=== PATIENT | male | born 1945 | race Caucasian/White ===

== ENCOUNTER 2016-07-14 09:22 | Day surgery (SDC) | payer MEDICARE, BC ==
[2016-07-14] MEDS ORDERED: Lactated Ringer's 500 ML IV ONE ×2 (10:03→11:38)
[2016-07-14] MEDS ORDERED: Propofol 10 mg/ml Inj (20 ML) ONE (11:20)
[2016-07-14 11:45] VITALS: TEMP 97
[2016-07-14 11:58] VITALS: BP 125/78; PULSE 76; RESP 15; O2SAT 97
== END 2016-07-14 23:00 | disposition home or self-care (01) ==
LOC: H.ENDO 09:22
PROVIDERS: ATTEND Internal Medicine Gastroenterology
DX: D12.5 Benign neoplasm of sigmoid colon (principal); K57.30 Diverticulosis of large intestine without perforation or abscess without bleeding; K64.4 Residual hemorrhoidal skin tags; K64.8 Other hemorrhoids
CPT/HCPCS: 45380; 88305; J2001; J2704; J7120

== ENCOUNTER 2017-04-02 08:31 | Emergency (ER) | payer MEDICARE, BC ==
[2017-04-02 08:45] VITALS: BP 156/81; PULSE 107; BMI 32.8
[2017-04-02 08:47] VITALS: RESP 18; TEMP 98; O2SAT 95
[2017-04-02 10:16] LABS: RBC URINE 3 /hpf (0-3); URINE BACTERIA RARE (<OCC); URINE BILIRUBIN NEGATIVE (NEGATIVE); URINE BLOOD NEGATIVE (NEGATIVE); URINE COLOR YELLOW (YELLOW); URINE GLUCOSE (UA) NEG (Normal); URINE KETONE NEGATIVE (NEGATIVE); URINE LEUKOCYTE ESTERASE NEG Leu/uL (Negative); URINE PROTEIN NEGATIVE (NEGATIVE); WBC URINE 1 /hpf (0-5)
--- NOTE | 2017-04-02 10:55 | RAD ---
PROCEDURE: Radiographs of the Lumbar Spine. HISTORY: Left lower back pain COMPARISON: No prior study available for comparison FINDINGS: BONES: No acute compression fractures no retropulsed fragments. Vertebral bodies exhibit relatively normal stature. Vertebral bodies and facets normally aligned. DISC SPACES: Mild multilevel degenerative spondylosis. . Multilevel variable posterior disc space narrowing, endplate eburnation and small marginal anterolateral and posterior osteophyte formation former slightly larger than latter. Disc space narrowing most notable at the L5-S1 level. OTHER FINDINGS: Vascular calcifications of the abdominal aorta and iliac arteries. IMPRESSION: No acute fractures. Multilevel degenerative spondylosis as described.
--- NOTE | 2017-04-02 12:43 | ED PDOC ---
HPI: Back Time Seen by Provider: 04/02/17 08:55 Chief Complaint (Nursing): Back Pain Past Medical History Vital Signs: Last Vital Signs Temp 98 F 04/02/17 08:45 Pulse 107 H 04/02/17 08:45 Resp 18 04/02/17 08:45 BP 156/81 H 04/02/17 08:45 Pulse Ox 95 04/02/17 08:45 - Medical History PMH: Hypercholesterolemia - Allergies Allergies/Adverse Reactions: Allergies Allergy/AdvReac Type Severity Reaction Status Date / Time No Known Allergies Allergy Verified 04/02/17 08:45 - ECG O2 Sat by Pulse Oximetry: 95 Disposition - Disposition Forms: [employer] ([place]ic)
== END 2017-04-02 13:34 | disposition home or self-care (01) ==
LOC: H.ER 08:31 → MERGE 08:31 → H.ER 13:34
DX: M54.9 Dorsalgia, unspecified (principal); E78.00 Pure hypercholesterolemia, unspecified
CPT/HCPCS: 72114; 81003; 96372; 99282; J1885